=== PATIENT | female | born 1975 | race Hispanic/Latino ===

== ENCOUNTER → 2021-06-26 | Outpatient (CLI) | payer OTHER | END | disposition home or self-care (01) | LOC: LAB 10:00 | PROVIDERS: ATTEND Internal Medicine Cardiovascular Disease | DX: Z20.822 Contact with and (suspected) exposure to COVID-19 (principal) | CPT/HCPCS: C9803; U0003 ==

== ENCOUNTER → 2021-12-05 | Outpatient (CLI) | payer OTHER ==
[2021-12-05 10:49] LABS: BASOPHILS % (AUTO) 0.7 % (0.0-5.0); EOSINOPHILS % (AUTO) 1.4 % (0.0-8.0); HEMATOCRIT 37.7 % (36-48); LYMPHOCYTES % (AUTO) 33.4 % (21.0-51.0); MEAN CORPUSCULAR HEMOGLOBIN 29.3 pg (27.0-33.0); MEAN CORPUSCULAR HGB CONC 32.6 g/dL (32.0-36.0); MEAN CORPUSCULAR VOLUME 89.8 fL (79-99); MONOCYTES % (AUTO) 4.1 % (3.0-13.0); PLATELET COUNT (AUTO) 356 K/uL (130-400); RED CELL DISTRIBUTION WIDTH 12.9 % (11.0-15.5); WHITE BLOOD COUNT (AUTO) 8.4 K/uL (4.8-10.8)
[2021-12-05 10:50] LABS: APPEARANCE,URINE Clear (CLEAR); BILIRUBIN,URINE Negative (NEGATIVE); COLOR,URINE Yellow (YELLOW); GLUCOSE, URINE (UA) Negative (NEGATIVE); KETONES,URINE Negative (NEGATIVE); LEUKOCYTE ESTERASE ,URINE Negative (NEGATIVE); NITRATE,URINE Negative (NEGATIVE); OCCULT BLOOD,URINE Moderate (NEGATIVE); PH,URINE 5.5 (5.0-8.0); PROTEIN,URINE Negative (NEGATIVE)
[2021-12-05 10:56] LABS: HEMOGLOBIN A1C 6.9 % (4.0-6.0)
[2021-12-05 11:10] LABS: RBC,URINE 0-1 /HPF (0-1); WBC,URINE 0-1 /HPF (0-1)
[2021-12-05 11:11] LABS: ALBUMIN 3.7 g/dL (3.5-5.0); BACTERIA,URINE Rare /HPF (None Seen); BILIRUBIN,TOTAL 0.8 mg/dL (0.2-1.0); CREATININE 0.6 mg/dL (0.5-1.5); MUCUS,URINE Rare LPF (None Seen); POTASSIUM 4.2 mmol/L (3.5-5.1); SQUAMOUS EPITHELIAL CELL,UR Rare /HPF (0-2); THYROID STIMULATING HORMONE 3.88 uIU/mL (0.36-3.74); TOTAL PROTEIN, SERUM 7.9 g/dL (6.0-8.3)
== END | disposition home or self-care (01) ==
LOC: ICE 10:03
PROVIDERS: ATTEND Internal Medicine Cardiovascular Disease
DX: I10 Essential (primary) hypertension (principal); E11.65 Type 2 diabetes mellitus with hyperglycemia; E78.2 Mixed hyperlipidemia; E03.8 Other specified hypothyroidism; Z20.822 Contact with and (suspected) exposure to COVID-19
CPT/HCPCS: 36415; 80053; 80061; 81001; 82306; 83036; 84443; 85025; 87635; C9803

== ENCOUNTER → 2022-01-08 | Outpatient (CLI) | payer OTHER | END | disposition home or self-care (01) | LOC: RAH 16:09 | PROVIDERS: ATTEND Obstetrics & Gynecology | DX: Z12.31 Encounter for screening mammogram for malignant neoplasm of breast (principal) | CPT/HCPCS: 77067 ==

== ENCOUNTER → 2022-08-06 | Outpatient (CLI) | payer OTHER | END | disposition home or self-care (01) | LOC: DTH 10:00 | PROVIDERS: ATTEND Surgery | DX: Z71.3 Dietary counseling and surveillance (principal); E11.9 Type 2 diabetes mellitus without complications; E78.5 Hyperlipidemia, unspecified; E78.00 Pure hypercholesterolemia, unspecified; I10 Essential (primary) hypertension; K21.9 Gastro-esophageal reflux disease without esophagitis; K76.0 Fatty (change of) liver, not elsewhere classified; M19.91 Primary osteoarthritis, unspecified site; G47.33 Obstructive sleep apnea (adult) (pediatric); E66.01 Morbid (severe) obesity due to excess calories; Z68.41 Body mass index [BMI] 40.0-44.9, adult | CPT/HCPCS: 97803 ==

== ENCOUNTER → 2022-08-11 | Outpatient (CLI) | payer OTHER ==
[2022-08-11 13:36] LABS: BASOPHILS % (AUTO) 0.7 % (0.0-5.0); EOSINOPHILS % (AUTO) 1.8 % (0.0-8.0); HEMATOCRIT 37.4 % (36-48); LYMPHOCYTES % (AUTO) 40.4 % (21.0-51.0); MEAN CORPUSCULAR HEMOGLOBIN 27.4 pg (27.0-33.0); MEAN CORPUSCULAR HGB CONC 32.4 g/dL (32.0-36.0); MEAN CORPUSCULAR VOLUME 84.6 fL (79-99); MONOCYTES % (AUTO) 3.6 % (3.0-13.0); NEUTROPHILS % (AUTO) 53.4 % (40.0-77.0); PLATELET COUNT (AUTO) 457 K/uL (130-400); RED BLOOD CELL COUNT(AUTO) 4.42 MIL/uL (4.00-5.50); RED CELL DISTRIBUTION WIDTH 14.1 % (11.0-15.5); WHITE BLOOD COUNT (AUTO) 8.5 K/uL (4.8-10.8)
[2022-08-11 13:44] LABS: HEMOGLOBIN A1C 6.3 % (4.0-6.0)
[2022-08-11 14:17] LABS: CREATININE 0.6 mg/dL (0.5-1.5); POTASSIUM 3.7 mmol/L (3.5-5.1); THYROID STIMULATING HORMONE 2.59 uIU/mL (0.36-3.74); TOTAL PROTEIN, SERUM 8.2 g/dL (6.0-8.3)
== END | disposition home or self-care (01) ==
LOC: LAB 12:56
PROVIDERS: ATTEND Surgery
DX: E66.01 Morbid (severe) obesity due to excess calories (principal)
CPT/HCPCS: 36415; 80053; 80061; 82306; 82607; 82728; 83036; 83540; 83550; 84439; 84443; 84590; 85025

== ENCOUNTER 2022-09-19 11:00 | Inpatient (IN) | payer OTHER ==
[~2022-09-19] VITALS: Ht 160 cm; Wt 103.3 kg
[2022-09-19 14:54] LABS: BASOPHILS % (AUTO) 0.5 % (0.0-5.0); EOSINOPHILS % (AUTO) 0.8 % (0.0-8.0); HEMATOCRIT 36.3 % (36-48); LYMPHOCYTES % (AUTO) 35.9 % (21.0-51.0); MEAN CORPUSCULAR HEMOGLOBIN 27.3 pg (27.0-33.0); MEAN CORPUSCULAR HGB CONC 31.7 g/dL (32.0-36.0); MONOCYTES % (AUTO) 4.7 % (3.0-13.0); PLATELET COUNT (AUTO) 368 K/uL (130-400); RED BLOOD CELL COUNT(AUTO) 4.22 MIL/uL (4.00-5.50); RED CELL DISTRIBUTION WIDTH 14.1 % (11.0-15.5); WHITE BLOOD COUNT (AUTO) 8.3 K/uL (4.8-10.8)
[2022-09-19 15:10] LABS: ALBUMIN 3.9 g/dL (3.5-5.0); CREATININE 0.5 mg/dL (0.5-1.5); POTASSIUM 3.6 mmol/L (3.5-5.1)
[2022-09-19 15:30] LABS: TOTAL PROTEIN, SERUM 7.8 g/dL (6.0-8.3)
[2022-09-23 15:07] VITALS: BP 159/76
[2022-09-23] MEDS ORDERED: OZEMPIC SQ (15:22)
[2022-09-23] MEDS ORDERED: LOSA25TA41 PO (15:23)
[2022-09-23] MEDS ORDERED: METF-444 PO (15:23)
[2022-09-23] MEDS ORDERED: LEVO-172 PO (15:24)
[2022-09-23] MEDS ORDERED: OMEP20CA12 PO (15:24)
[2022-09-23] MEDS ORDERED: ROSU10TA28 PO (15:24)
[2022-09-24] VITALS (25 sets, daily range): BP systolic 112–154; BP diastolic 50–87
[2022-09-24] MEDS ORDERED: CEFAZOLIN SODIUM 1 GM VIAL ONE (07:16)
[2022-09-24] MEDS ORDERED: METRONIDAZOLE 500MG/100ML BAG 200 ML ONE (07:16)
[2022-09-24] MEDS ORDERED: 0.9%NACL 1000ML 1,000 ML IV ONE (07:17)
[2022-09-24] MEDS ORDERED: BUPIVACAINE/PF 0.25% 30ML VIAL IJ ONE (11:21)
[2022-09-24] MEDS ORDERED: LIDOCAINE PF 100MG/5ML (2%) SYRINGE 5ML ONE (12:20)
[2022-09-24] MEDS ORDERED: DEXAMETHASONE SOD PHOSPHATE 10MG/ML 1ML VIAL ONE (12:20)
[2022-09-24] MEDS ORDERED: GLYCOPYRROLATE 1 MG/5 ML SYRINGE ONE (12:20)
[2022-09-24] MEDS ORDERED: SUCCINYLCHOLINE CHLORIDE 20 MG/ML 10 ML VIAL ONE (12:20)
[2022-09-24] MEDS ORDERED: MIDAZOLAM HCL 1 MG/ML 2ML VIAL ONE (12:20)
[2022-09-24] MEDS ORDERED: NEOSTIGMINE 5MG/5ML SYR IV ONE (12:21)
[2022-09-24] MEDS ORDERED: ONDANSETRON 4MG INJ ONE (12:21)
[2022-09-24] MEDS ORDERED: PROPOFOL 10 MG/ML 20ML VIAL IV ONE ×2 (12:21→13:36)
[2022-09-24] MEDS ORDERED: ROCURONIUM 10MG/1ML SYR 10 MG/ML ML ONE ×2 (12:21→14:05)
[2022-09-24] MEDS ORDERED: FENTANYL CITRATE PF 50 MCG/1 ML 2ML VIAL ONE ×2 (12:22→14:05)
[2022-09-24] MEDS ORDERED: CEFAZOLIN SODIUM 2 GM VIAL IVPB ONE (13:31)
[2022-09-24] MEDS ORDERED: MEPERIDINE-PF 25 MG/ML SYG ONE (15:18)
[2022-09-24] MEDS ORDERED: PROCHLORPERAZINE 10MG/2ML INJ IV PRN (15:30)
[2022-09-24] MEDS ORDERED: MORPHINE 4 MG SYG IVP PRN (15:30)
[2022-09-24] MEDS ORDERED: KETOROLAC 30MG VIAL (30MG/ML) IV PRN (15:30)
[2022-09-24] MEDS ORDERED: ONDANSETRON 4MG INJ IVP PRN (15:30)
[2022-09-24] MEDS ORDERED: METOCLOPRAMIDE 10 MG/2 ML VIAL ONE (15:50)
[2022-09-24] MEDS ORDERED: PROMETHAZINE HCL 25 MG/ML 1ML AMPULE ONE (15:54)
[2022-09-24] MEDS ORDERED: HYDROMORPHONE 1 MG INJ ONE (15:55)
[2022-09-24] MEDS: ENOXAPARIN SODIUM 30 MG/0.3 ML SQ SCH (18:12)
[2022-09-24] MEDS: 1/2NS+20MEQ KCL/1000ML 1,000 ML IV SCH (18:12)
[2022-09-25] MEDS: 1/2NS+20MEQ KCL/1000ML 1,000 ML IV SCH ×3 (00:07→11:30)
[2022-09-25] MEDS: HYDROCODONE/ACETAMINOPHEN 7.5/325 MG 15 ML UDCUP PO PRN ×3 (00:33→12:12)
[2022-09-25 03:10] VITALS: BP 134/63
[2022-09-25] MEDS: ENOXAPARIN SODIUM 30 MG/0.3 ML SQ SCH (06:09)
[2022-09-25 08:00] VITALS: BP 134/75
[2022-09-25] MEDS ORDERED: SIMETHICONE 80 MG TAB.CHEW ONE (09:12)
[2022-09-25] MEDS ORDERED: ONDANSETRON 4MG INJ ONE (09:49)
[2022-09-25] MEDS ORDERED: DiphenhydrAMINE HCL 50 MG/ML VIAL ONE (09:50)
[2022-09-25] MEDS ORDERED: ONDANSETRON 4MG INJ IVP PRN (10:00)
[2022-09-25] MEDS ORDERED: DiphenhydrAMINE HCL 50 MG/ML VIAL IM SCH (10:00)
[2022-09-25] MEDS ORDERED: 0.9% NACL 500ML IV.SOLN 500 ML IV SCH (10:30)
[2022-09-25 11:00] VITALS: BP 137/80
[2022-09-25] MEDS ORDERED: CALCIUM CARB 500MG CHEW TAB ONE (14:50)
== END 2022-09-25 17:12 | disposition home or self-care (01) | DRG 621 ==
LOC: DAHIP 09-24 06:14 → 4AH 09-24 16:55
PROVIDERS: ADMIT Surgery; ATTEND Surgery
PROC: 0DJ08ZZ Inspection of Upper Intestinal Tract, Via Natural or Artificial Opening Endoscopic (ICD-10-PCS; 2022-09-24)
PROC: 0DB64Z3 Excision of Stomach, Percutaneous Endoscopic Approach, Vertical (ICD-10-PCS; principal; 2022-09-24 13:30)
PROC: 0BQT4ZZ Repair Diaphragm, Percutaneous Endoscopic Approach (ICD-10-PCS; 2022-09-24 13:30)
DX: E66.01 Morbid (severe) obesity due to excess calories (principal); I10 Essential (primary) hypertension; Z68.41 Body mass index [BMI] 40.0-44.9, adult; Z20.822 Contact with and (suspected) exposure to COVID-19; E11.9 Type 2 diabetes mellitus without complications; K21.9 Gastro-esophageal reflux disease without esophagitis
CPT/HCPCS: 36415; 80053; 82948; 84703; 85025; 86850; 86900; 86901; 87426; 93005; G0378; J0330; J0690; J0780; J1100; J1170; J1200; J1650; J1885; J2001; J2175; J2250; J2270; J2405; J2550; J2704; J2710; J2765; J3010; J3480; J3490; J7030